=== PATIENT | male | born 1970 | race Caucasian/White ===

== ENCOUNTER 2017-02-06 07:46 | Inpatient (IN) | payer MEDICAID ==
[~2017-02-06] VITALS: Ht 165.1 cm; Wt 67.8 kg
[2017-02-06] VITALS (12 sets, daily range): BP systolic 108–148; BP diastolic 59–86; PULSE 85–101; RESP 16–26; Ht 165.1 cm; Wt 67.8 kg
[~2017-02-06 07:46] MED LIST: ASPI-664 PO; ATOR20TA38 PO; BUPIVACAINE 0.25%/EPI (SDV) 30 ML INJ INJ ONE; CLOP75TA27 PO; GLIP-95 PO; LANT3I SC; LISI-313 PO; METF500T PO; METO-448 PO
[2017-02-06] MEDS ORDERED: morphine 4 MG/ML VIAL IV STA (08:17)
[2017-02-06] MEDS ORDERED: ONDANSETRON 4 MG INJ IV STA (08:17)
[2017-02-06 08:47] LABS: ADD SCAN DIFF NO
[2017-02-06 08:49] LABS: BASOPHILS % 0.2 % (0.0-2.0); EOSINOPHILS # 0.1 10^3/ul (0.0-0.5); EOSINOPHILS % 0.7 % (0.0-7.0); HEMATOCRIT 43.2 % (42.0-52.0); LYMPHOCYTES # 1.3 10^3/ul (0.8-2.9); LYMPHOCYTES % 10.7 % (15.0-51.0); MEAN CORPUSCULAR HEMOGLOBIN 30.7 pg (29.0-33.0); MEAN CORPUSCULAR HGB CONC 34.7 g/dl (32.0-37.0); MEAN CORPUSCULAR VOLUME 88.5 fl (82.0-101.0); MEAN PLATELET VOLUME 9.6 fl (7.4-10.4); MONOCYTE # 0.7 10^3/ul (0.3-0.9); MONOCYTES % 5.5 % (0.0-11.0); NEUTROPHIL # 9.7 10^3/ul (1.6-7.5); NEUTROPHILS % 82.4 % (39.0-77.0); PLATELET COUNT 222 10^3/UL (140-415); RED BLOOD COUNT 4.88 10^6/ul (4.70-6.10); RED CELL DISTRIBUTION WIDTH 13.2 % (11.5-14.5); WHITE BLOOD COUNT 11.7 10^3/ul (4.8-10.8)
--- NOTE | 2017-02-06 09:11 | RADRPT ---
PROCEDURE: Scrotal ultrasound CLINICAL INDICATION: Right scrotal pain. TECHNIQUE: Scrotal ultrasound was performed in multiple obliquities. Lujan scale and color imaging was performed. Images were reviewed on high resolution PACS monitors. COMPARISON: None available FINDINGS: The testes are normal in size and echogenicity. There is normal flow to the bilateral testes. No t esticular mass or cyst is identified. No hydroceles are seen. The epididymides are normal. The re is no evidence for a varicocele. IMPRESSION: 1. Unremarkable scrotal ultrasound. RPTAT: HJBF .Ariel Gonzales MD, MD Date Time Electronically viewed and signed by .Ariel Gonzales MD, on 02/06/2017 09:11 .B/
[2017-02-06 09:15] LABS: ADD UMIC YES; URINE BILIRUBIN (Dip) NEGATIVE (NEGATIVE); URINE BLOOD (Dip) TRACE (NEGATIVE); URINE COLOR LT. YELLOW (YELLOW); URINE KETONES (Dip) 40 (NEGATIVE); URINE LEUKOCYTE ESTERASE (Dip) NEGATIVE (NEGATIVE); URINE NITRITE (Dip) NEGATIVE (NEGATIVE); URINE TOTAL PROTEIN (Dip) 1+ (NEGATIVE); URINE UROBILINOGEN (Dip) 1.0 E.U./dL (0.1-1.0)
[2017-02-06 09:19] LABS: ALBUMIN/GLOBULIN RATIO 1.17
[2017-02-06 09:31] LABS: CALCIUM 9.4 mg/dl (8.4-10.2); CREATININE 0.44 mg/dl (0.61-1.24); POTASSIUM 4.1 mmol/L (3.5-5.1)
[2017-02-06 09:32] LABS: ALBUMIN 4.6 g/dl (3.3-4.9); BILIRUBIN,INDIRECT 0.6 mg/dl (0-1.1); BILIRUBIN,TOTAL 0.6 mg/dl (0.2-1.3); TOTAL PROTEIN 8.5 g/dl (6.1-8.1)
[2017-02-06 09:35] LABS: BACTERIA,URINE FEW; MUCUS,URINE MANY
--- NOTE | 2017-02-06 09:55 | RADRPT ---
PROCEDURE: CT Abdomen and Pelvis without contrast. CLINICAL INDICATION: Abdominal pain. TECHNIQUE: Routine axial tomographic images of the abdomen and pelvis were obtained from the domes of the diaphragm to the symphysis pubis. The patient was scanned withoutoral or intravenous contra st. Coronal and sagittal reformatted images were obtained from the axial source images. Images were reviewed on a high-resolution PACS workstation. One or more of the following dose reduction techniques were used: Automated exposure control, Adjust ment of the mA and/or kV according to patient size, and/or Use of iterative reconstruction technique . The total exam CTDI equals 12.01 mGy and the total exam DLP equals 677.60 mGy-cm. COMPARISON: None. FINDINGS: The visualized portions of the lung bases demonstrate mild bilateral basilar atelectasis. Evaluat ion of the intra-abdominal solid organs is somewhat limited on this noncontrast examination. The li jennifer appears normal in size. There is no intra or extrahepatic biliary dilatation. There is a 4 mm c alcification along the posterior right hepatic lobe. The gallbladder is unremarkable by CT criteria . The spleen, pancreas, and adrenal glands are unremarkable. The kidneys are symmetric in size. No renal, ureteral, or bladder calculi are identified. No perine phric inflammatory changes are identified. The urinary bladder is grossly unremarkable. The bowel demonstrates normal course and caliber. There is no evidence of bowel obstruction. The a ppendix fluid-filled and distended measuring 10 mm in diameter. There is an appendicolith at the ba se of the appendix. No intraperitoneal free fluid, free air or abscess is identified. The pelvic o rgans are grossly unremarkable. No retroperitoneal, mesenteric, or inguinal lymphadenopathy is iden tified. The aorta is normal in caliber and contains vascular calcifications. The osseous structures demonstrate degenerative changes of the spine. No significant subcutaneous soft tissue abnormalities are seen. IMPRESSION: 1. Acute appendicitis. No intraperitoneal free fluid or abscess is seen. 2. Arterial atherosclerosis. RPTAT: HH .Diana White MD, MD Date Time Electronically viewed and signed by .Diana White MD, MD on 02/06/2017 09:55 .G/
[2017-02-06] MEDS ORDERED: HYDROmorphONE 1 MG/ML SYG IV STA (10:18)
[2017-02-06] MEDS ORDERED: PIPER-TAZO 3.375 GM IV (PMX) 100 ML IVPB ONE (10:30)
[2017-02-06] MEDS ORDERED: SOD CHLORIDE 0.9% 1,000 ML IV ONE (10:30)
--- NOTE | 2017-02-06 10:39 | ERD ---
ER Documentation Chief Complaint Date/Time DATE: 02/06/17 TIME: 10:33 Chief Complaint RLQ ABD PAIN WITH NAUSEA SINCE YESTERDAY HPI This 46-year-old male who presents the emergency department today complaining of right testicular pain that goes up towards the right side of his stomach. States he is taking Flomax for pain. States he has had some nausea but no vomiting. Denies any fevers or chills. Denies any purulent drainage from penis ROS All systems reviewed and are negative except as per history of present illness. Medications Home Meds Active Scripts Aspirin* (Aspirin* EC) 81 Mg Tabec, 81 MG PO DAILY for 30 Days Prov:REGINALDO VALDES S. 06/22/14 Clopidogrel Bisulfate (Clopidogrel) 75 Mg Tab, 75 MG PO DAILY for 30 Days Prov:REGINALDO VALDES S. 06/22/14 Atorvastatin Calcium* (Atorvastatin Calcium*) 20 Mg Tab, 40 MG PO DAILY for 30 Days Prov:REGINALDO VALDES S. 06/22/14 Metoprolol Tartrate* (Lopressor*) 25 Mg Tab, 25 MG PO BID for 30 Days, TAB Prov:REGINALDO VALDES S. 06/22/14 Insulin Glargine* (Lantus*) 100 Unit/Ml Soln, 10 UNIT SC HS for 30 Days Prov:REGINALDO VALDES S. 06/22/14 Reported Medications Metformin Hcl (Glucophage) 500 Mg Tablet, 1000 MG PO BID, TAB 06/22/14 Lisinopril* (Lisinopril*) 5 Mg Tablet, 5 MG PO DAILY, TAB 06/22/14 Glipizide* (Glipizide*) 10 Mg Tablet, 10 MG PO BID, TAB 06/22/14 Allergies Allergies: Coded Allergies: No Known Allergy (Unverified , 06/21/14) PMhx/Soc History of Surgery: No Anesthesia Reaction: No Hx Neurological Disorder: Yes (stroke) Hx Respiratory Disorders: Yes (ASHTMA) Hx Cardiac Disorders: Yes Hx Psychiatric Problems: No Hx Miscellaneous Medical Probl: Yes (dm) Hx Alcohol Use: No Hx Substance Use: No Hx Tobacco Use: No Physical Exam Vitals Vital Signs Date Time Temp Pulse Resp B/P Pulse Ox O2 Delivery O2 Flow Rate FiO2 02/06/17 07:49 98.1 86 18 134/83 98 Physical Exam Const: No acute Head: Atraumatic Eyes: Normal Conjunctiva ENT: Normal External Ears, Nose and Mouth. Neck: Full range of motion..~ No meningismus. Resp: Clear to auscultation bilaterally Cardio: Regular rate and rhythm, no murmurs Abd: Soft, right lower quadrant tenderness. Tenderness at McBurney's., non distended. Normal bowel sounds : Testicles descended bilaterally. Nontender right testicle. No purulent drainage. No erythema or warmth Skin: No petechiae or rashes Back: No midline or flank tenderness Ext: No cyanosis, or edema Neur: Awake and alert Psych: Normal Mood and Affect Result Diagram: 02/06/17 0820 02/06/1720 Results 24 hrs Laboratory Tests Test 02/06/17 08:20 02/06/17 08:52 White Blood Count 11.710^3/ul Red Blood Count 4.8810^6/ul Hemoglobin 15.0g/dl Hematocrit 43.2% Mean Corpuscular Volume 88.5fl Mean Corpuscular Hemoglobin 30.7pg Mean Corpuscular Hemoglobin Concent 34.7g/dl Red Cell Distribution Width 13.2% Platelet Count 06406^3/UL Mean Platelet Volume 9.6fl Neutrophils % 82.4% Lymphocytes % 10.7% Monocytes % 5.5% Eosinophils % 0.7% Basophils % 0.2% Nucleated Red Blood Cells % 0.0/100WBC Neutrophils # 9.710^3/ul Lymphocytes # 1.310^3/ul Monocytes # 0.710^3/ul Eosinophils # 0.110^3/ul Basophils # 0.010^3/ul Nucleated Red Blood Cells # 0.010^3/ul Sodium Level 136mmol/L Potassium Level 4.1mmol/L Chloride Level 102mmol/L Carbon Dioxide Level 23mmol/L Anion Gap 15 Blood Urea Nitrogen 18mg/dl Creatinine 0.44mg/dl Glucose Level 260mg/dl Calcium Level 9.4mg/dl Total Bilirubin 0.6mg/dl Direct Bilirubin 0.00mg/dl Indirect Bilirubin 0.6mg/dl Aspartate Amino Transf (AST/SGOT) 22IU/L Alanine Aminotransferase (ALT/SGPT) 37IU/L Alkaline Phosphatase 122IU/L Total Protein 8.5g/dl Albumin 4.6g/dl Globulin 3.90g/dl Albumin/Globulin Ratio 1.17 Lipase 46U/L Urine Color LT. YELLOW Urine Clarity CLEAR Urine pH 6.0 Urine Specific Horner 1.020 Urine Ketones 40 Urine Nitrite NEGATIVE Urine Bilirubin NEGATIVE Urine Urobilinogen 1.0 E.U./dL Urine Leukocyte Esterase NEGATIVE Urine Microscopic RBC 2-5/HPF Urine Microscopic WBC 2-5/HPF Urine Epithelial Cells FEW Urine Bacteria FEW Urine Mucus MANY Urine Hemoglobin TRACE Urine Glucose 0.5%% Urine Total Protein 1+ Current Medications Medications (Trade) Dose Ordered Sig/Kofi Route PRN Reason Start Time Stop Time Status Last Admin Dose Admin Morphine Sulfate (morphine) 4 mg ONCE STAT IV 02/06/17 08:17 02/06/17 08:19 DC 02/06/17 08:32 Ondansetron HCl (Zofran Inj) 4 mg ONCE STAT IV 02/06/17 08:17 02/06/17 08:19 DC 02/06/17 08:32 Hydromorphone HCl 1 mg 1 mg ONCE STAT IV 02/06/17 10:18 02/06/17 10:20 DC Sodium Chloride 1,000 ml @ 1,000 mls/hr Q1H ONCE IV 02/06/17 10:30 02/06/17 11:29 Piperacillin Sod/ Tazobactam Sod (Zosyn 3.375gm/ 100 ml (Pmx)) 100 ml @ 200 mls/hr ONCE ONCE IVPB 02/06/17 10:30 02/06/17 10:59 DIAGNOSTIC IMAGING REPORT Patient: KYM LYON : 1970 Age: 46 Sex: M [id number] DOS: 02/06/17 0817 Ordering MD: TOM ALONSO PA-C Location: [facility], [facility] Room/Bed: PROCEDURE: Scrotal ultrasound CLINICAL INDICATION: Right scrotal pain. TECHNIQUE: Scrotal ultrasound was performed in multiple obliquities. Lujan scale and color imaging was performed. Images were reviewed on high resolution PACS monitors. COMPARISON: None available FINDINGS: The testes are normal in size and echogenicity. There is normal flow to the bilateral testes. No testicular mass or cyst is identified. No hydroceles are seen. The epididymides are normal. There is no evidence for a varicocele. IMPRESSION: 1. Unremarkable scrotal ultrasound. RPTAT: HJBF .Ariel Gonzales MD, MD Date Time Electronically viewed and signed by .Ariel Gonzales MD, MD on 2016 09:11 .B/ CC: TOM ALONSO PA-C DIAGNOSTIC IMAGING REPORT Patient: KYM LYON : 1970 Age: 46 Sex: M MR #: [id number] DOS: 02/06/17 0858 Ordering MD: TOM ALONSO PA-C Location: [facility] Room/Bed: PROCEDURE: CT Abdomen and Pelvis without contrast. CLINICAL INDICATION: Abdominal pain. TECHNIQUE: Routine axial tomographic images of the abdomen and pelvis were obtained from the domes of the diaphragm to the symphysis pubis. The patient was scanned withoutoral or intravenous contrast. Coronal and sagittal reformatted images were obtained from the axial source images. Images were reviewed on a high-resolution PACS workstation. One or more of the following dose reduction techniques were used: Automated exposure control, Adjustment of the mA and/or kV according to patient size, and/ or Use of iterative reconstruction technique. The total exam CTDI equals 12.01 mGy and the total exam DLP equals 677.60 mGy-cm. COMPARISON: None. FINDINGS: The visualized portions of the lung bases demonstrate mild bilateral basilar atelectasis. Evaluation of the intra-abdominal solid organs is somewhat limited on this noncontrast examination. The liver appears normal in size. There is no intra or extrahepatic biliary dilatation. There is a 4 mm calcification along the posterior right hepatic lobe. The gallbladder is unremarkable by CT criteria. The spleen, pancreas, and adrenal glands are unremarkable. The kidneys are symmetric in size. No renal, ureteral, or bladder calculi are identified. No perinephric inflammatory changes are identified. The urinary bladder is grossly unremarkable. The bowel demonstrates normal course and caliber. There is no evidence of bowel obstruction. The appendix fluid-filled and distended measuring 10 mm in diameter. There is an appendicolith at the base of the appendix. No intraperitoneal free fluid, free air or abscess is identified. The pelvic organs are grossly unremarkable. No retroperitoneal, mesenteric, or inguinal lymphadenopathy is identified. The aorta is normal in caliber and contains vascular calcifications. The osseous structures demonstrate degenerative changes of the spine. No significant subcutaneous soft tissue abnormalities are seen. IMPRESSION: 1. Acute appendicitis. No intraperitoneal free fluid or abscess is seen. 2. Arterial atherosclerosis. RPTAT: HH .Diana White MD, MD Date Time Electronically viewed and signed by .Diana White MD, MD on 02/06/2017 09 :55 .G/ CC: TOM ALONSO PA-C Procedures/[facility] This a 46-year-old male who presents to the emergency department today complaining of right testicular pain that goes up to his stomach. On physical exam patient did not have any testicular pain however he had significant amount of tenderness in his right lower quadrant and specifically at McBurney's. I did obtain laboratory work as well as an ultrasound and CT abdomen pelvis. Laboratory work shows an elevated white blood cell count of 11.7. He is not anemic. Platelets are within normal limits. Electrolytes are within normal limits. Glucose is elevated at 260. Liver functions within normal limits. Lipase within normal limits. UA is negative for infection or hematuria. Patient has glucose in his urine Testicular ultrasound is unremarkable. There is no evidence of testicular torsion, epididymitis, orchitis. No evidence of varicocele or hydrocele there are no masses or cysts identified. There is normal flow to bilateral testes CT abdomen pelvis noncontrast shows acute appendicitis. The appendix is fluid- filled and distended measuring 10 mm in diameter. There is an appendicolith at the base of the appendix. There is no free fluid, free air or abscess. There is arterial atherosclerosis. Gallbladder is unremarkable. There are no renal or ureteral or bladder calculi identified. Patient symptoms at this time most consistent with acute appendicitis. I was not called in regards to the CT scan by the radiologist. I did notify Dr. Salazar immediately upon viewing the results of the CT scan. Patient had been given morphine and Zofran here in the emergency department. He continued to complain of pain and was therefore given Dilaudid, IV fluids and Zosyn. Patient will be admitted to the hospital for likely appendectomy. I explained the results to the patient. Any further orders placed will be placed by the admitting physician, surgeon or TOM White PA-C February 06, 2017 10:39
[2017-02-06] MEDS ORDERED: SOD CHLORIDE 0.9% 1,000 ML IV SCH (11:12)
[2017-02-06] MEDS: PIPER-TAZO 3.375 GM IV (PMX) 100 ML IVPB SCH ×2 (11:27→17:24)
[2017-02-06] MEDS ORDERED: GLUCOSE GEL 15 GRAM TUBE BUCCAL PRN (11:30)
[2017-02-06] MEDS ORDERED: HYDROCODONE/APAP (5/325) TAB PO PRN ×2 (11:30)
[2017-02-06] MEDS ORDERED: ONDANSETRON 4 MG INJ IV PRN ×2 (11:30→22:00)
[2017-02-06] MEDS ORDERED: BISACODYL 10 MG SUPP PR PRN (11:30)
[2017-02-06] MEDS ORDERED: morphine 2 MG INJ IV PRN (11:30)
[2017-02-06] MEDS ORDERED: DEXTROSE 50% 50 ML SYRINGE IV PRN ×2 (11:30)
[2017-02-06] MEDS ORDERED: MAGNESIUM HYDROXIDE 30ML CUP PO PRN (11:30)
[2017-02-06] MEDS ORDERED: GLUCOSE GEL 15 GRAM TUBE PO PRN ×2 (11:30)
[2017-02-06] MEDS ORDERED: GLUCAGON 1 MG INJ IM PRN (11:30)
[2017-02-06] MEDS ORDERED: ACETAMINOPHEN 325 MG TAB PO PRN (11:30)
[2017-02-06] MEDS ORDERED: ACETAMINOPHEN 650 MG SUPP PR PRN (11:30)
[2017-02-06] MEDS ORDERED: NACL 0.9% 3 ML SYG IV SCH (11:30)
[2017-02-06] MEDS ORDERED: DOCUSATE SODIUM 100 MG CAP PO PRN (11:30)
[2017-02-06] MEDS: INSULIN ASPART [NOVOLOG] 3 ML PEN SC SCH ×6 (12:00→23:17)
[2017-02-06] MEDS ORDERED: HYDROmorphONE 1 MG/ML SYG IV PRN (15:30)
--- NOTE | 2017-02-06 15:35 | HP ---
Date/Time of Note Date/Time of Note DATE: 02/06/17 TIME: 15:30 Assessment/Plan VTE Prophylaxis VTE Prophylaxis Intervention: SCD's Assessment/Plan Chief Complaint/Hosp Course Impression and plan 1. Acute appendicitis. Continue antibiotic for now. Keep n.p.o. IV fluids. Analgesics as needed. Surgeon consulted. Tentative plan for surgical intervention. Will follow. 2. History of CAD status post PCI in 2013 with known history of myocardial infarction. Continue antiplatelet therapy and statin medication 3. History dyslipidemia. Follow-up on fasting lipid panel. Continue on statin medication. 4. Essential hypertension. Continue antihypertensives and adjust as needed 5. Diabetes. Patient with noted A1c of 10.3. This report compliance with home oral anti-glycemic's but does state his blood glucose at home is typically always high. Will start patient on insulin regimen and adjust as needed. Will get nutrition educator to follow. DVT prophylaxis: Is SCDs Admission process time is 40 minutes Discussed plan of care with Dr. Reyes Problems: HPI/ROS Admit Date/Time Admit Date/Time February 06, 2017 at 10:40 Hx of Present Illness Is a 46-year-old male with past medical history of CAD with myocardial infarction in 2013 status post cardiac stent, hypertension, dysrhythmia, diabetes, who came to [facility] due to reports of abdominal pain. Patient did report he had abdominal pain for 1 day duration starting yesterday afternoon while he was walking. He did report that his pain initially started in the right testicle and migrated up to his right upper abdominal quadrant and into his left upper abdominal quadrant. He did report having some diffuse. He did have some nausea but no reported vomiting. His pain continued to worsen and was unable to tolerate oral intake and as such was brought to [facility] for further evaluation. Upon examination he did have testicular ultrasound done that was noted to be unremarkable. Additionally had a CT scan of his abdomen and pelvis that did have findings consistent with acute appendicitis. Patient also had some leukocytosis with white count of 11.7. No fever seen. Patient does still does report having abdominal pain 10 out of 10. Denies any other chest pain or shortness of breath. We will evaluate him for the aformentiond issues ROS 12 point review of systems obtained and entirely negative except that mentioned in history of present illness PMH/Family/Social Past Medical History Medical/surgical history 1. CAD status post PCI with history of myocardial infarction in 2014 1. Hypertension 3. Dyslipidemia 4. Diabetes Family History Significant Family History: no pertinent family hx Social History Alcohol Use: other (Reports drinking alcohol once a week) Smoking Status: Current every day smoker (Currently smokes 5 cigarettes a day) Drug Use: none Exam/Review of Systems Vital Signs Vitals Vital Signs Date Time Temp Pulse Resp B/P Pulse Ox O2 Delivery O2 Flow Rate FiO2 02/06/17 12:52 99.3 85 19 124/69 98 Room Air Exam Constitutional: alert, oriented Psych: nl mood/affect Eyes: nl conjunctiva Neck: supple, No jvd Respiratory: clear to auscultation Cardiovascular: regular rate and rhythm Gastrointestinal: soft, tender (Tender upon palpation on all abdominal quadrants) Musculoskeletal: nl extremities to inspection Neurological: ADMINISTRATOR PESTICIDE II-XII intact, nl mental status, nl speech Skin: nl turgor Labs Result Diagram: 02/06/17 0820 02/06/17 0820 Medications Medications Current Medications Aspirin (Halfprin) 81 mg DAILY PO ; Start 02/07/17 at 09:00 Atorvastatin Calcium (Lipitor) 40 mg DAILY PO ; Start 02/07/17 at 09:00 Clopidogrel Bisulfate (plaVIX) 75 mg DAILY PO ; Start 02/07/17 at 09:00 Insulin Glargine (Lantus) 10 unit HS SC ; Start 02/06/17 at 21:00 Metoprolol Tartrate 25 mg 25 mg BID PO ; Start 02/06/17 at 21:00 Sodium Chloride (NS) 1,000 ml @ 100 mls/hr Q10H IV ; Start 02/06/17 at 11:12 Ondansetron HCl (Zofran Inj) 4 mg Q6H PRN IV NAUSEA AND/OR VOMITING Last administered on 02/06/17t 12:51; Admin Dose 4 MG; Start 02/06/17 at 11:30 Acetaminophen (Tylenol Tab) 650 mg Q6H PRN PO PAIN LEVEL 1-3 OR FEVER; Start at 11:30 Acetaminophen (Tylenol Supp) 650 mg Q6H PRN IA PAIN LEVEL 1-3 OR FEVER; Start 02/06/17 at 11:30 Acetaminophen/ Hydrocodone Bitart (Hudson (5/325)) 1 tab Q6H PRN PO MODERATE PAIN LEVEL 4-6; Start 02/06/17 at 11:30 Acetaminophen/ Hydrocodone Bitart (Hudson (5/325)) 2 tab Q6H PRN PO SEVERE PAIN LEVEL 7-10; Start 02/06/17 at 11:30 Morphine Sulfate (morphine) 2 mg Q4H PRN IV SEVERE PAIN LEVEL 7-10 Last administered on 02/06/17t 12:51; Admin Dose 2 MG; Start 02/06/17 at 11:30 Docusate Sodium (Colace) 100 mg Q12H PRN PO CONSTIPATION; Start 02/06/17 at 11: 30 Magnesium Hydroxide (Milk Of Mag) 30 ml DAILY PRN PO CONSTIPATION; Start at 11:30 Bisacodyl (Dulcolax Supp) 10 mg DAILY PRN IA CONSTIPATION; Start 02/06/17 at 11: 30 Famotidine 20 mg 20 mg Q12 IV ; Start 02/06/17 at 21:00 Piperacillin Sod/ Tazobactam Sod (Zosyn 3.375gm/ 100 ml (Pmx)) 100 ml @ 200 mls /hr Q6 IVPB ; Start 02/06/17 at 12:00 Miscellaneous Information 1 ea NOTE XX ; Start 02/06/17 at 11:30 Glucose (Glutose) 15 gm Q15M PRN PO DECREASED GLUCOSE; Start 02/06/17 at 11:30 Glucose (Glutose) 22.5 gm Q15M PRN PO DECREASED GLUCOSE; Start 02/06/17 at 11:30 Dextrose (D50w Syringe) 25 ml Q15M PRN IV DECREASED GLUCOSE; Start 02/06/17 at 11:30 Dextrose (D50w Syringe) 50 ml Q15M PRN IV DECREASED GLUCOSE; Start 02/06/17 at 11:30 Glucagon (Glucagen) 1 mg Q15M PRN IM DECREASED GLUCOSE; Start 02/06/17 at 11:30 Glucose (Glutose) 15 gm Q15M PRN BUCCAL DECREASED GLUCOSE; Start 02/06/17 at 11: 30 Hydromorphone HCl (Dilaudid) 1 mg Q4H PRN IV PAIN; Start 02/06/17 at 15:30; Status OSCAR DAVE February 06, 2017 15:35
[2017-02-06] MEDS ORDERED: DEXTROSE 5%-0.45% NACL 1,000 ML IV SCH (16:00)
[2017-02-06] MEDS ORDERED: D5-0.2 NACL + KCL 20 MEQ 1,000 ML IV SCH (16:30)
[2017-02-06] MEDS: D5W-0.45 NACL + KCL 20 MEQ 1,000 ML IV SCH (16:53)
[2017-02-06] MEDS ORDERED: HYDROmorphONE 2 MG/ML SYG IV PRN (18:30)
[2017-02-06] MEDS: HYDROmorphONE 1 MG/ML SYG IV PRN (19:03)
[2017-02-06] MEDS ORDERED: BUPIVACAINE 0.25%/EPI (SDV) 30 ML INJ ONE (20:09)
[2017-02-06] MEDS ORDERED: GLYCOPYRROLATE 0.4 MG INJ ONE ×2 (20:37→21:11)
[2017-02-06] MEDS ORDERED: LIDOCAINE 2% (SDV) 5 ML INJ ONE (20:37)
[2017-02-06] MEDS ORDERED: PROPOFOL 20 ML ONE (20:37)
[2017-02-06] MEDS ORDERED: SUCCINYLCHOLINE CHLORIDE 100 MG/5 ML SYG IV ONE (20:37)
[2017-02-06] MEDS ORDERED: ROCURONIUM 50 MG INJ ONE (20:38)
[2017-02-06] MEDS ORDERED: MEPERIDINE 100 MG INJ ONE (20:38)
[2017-02-06] MEDS: METOPROLOL 25 MG TAB PO SCH (21:00)
[2017-02-06] MEDS: INSULIN GLARGINE [LANtus] 3 ML PEN SC SCH ×2 (21:00→23:24)
[2017-02-06] MEDS: FAMOTIDINE 20 MG INJ IV SCH (21:00)
[2017-02-06] MEDS ORDERED: NEOSTIGMINE 3 MG/3 ML SYRINGE ONE (21:12)
[2017-02-06] MEDS ORDERED: METOCLOPRAMIDE 10 MG INJ IV PRN (22:00)
[2017-02-06] MEDS ORDERED: MIDAZOLAM 1 MG/ML 2 ML INJ IV PRN (22:00)
[2017-02-06] MEDS ORDERED: DIPHENHYDRAMINE 50 MG INJ IV PRN (22:00)
[2017-02-06] MEDS ORDERED: OXYCODONE/ACETAMINOPHEN (5/325) TAB PO PRN (22:00)
[2017-02-06] MEDS ORDERED: HYDROmorphONE (0.2 MG/ML) 10ML SYG IV PRN ×2 (22:00)
[2017-02-06] MEDS ORDERED: morphine (1 MG/ML) 10ML SYRINGE IV PRN ×2 (22:00)
[2017-02-06] MEDS ORDERED: hydrALAzine 20 MG INJ IV PRN (22:00)
[2017-02-06] MEDS ORDERED: LABETALOL HCL 20MG INJ IV PRN (22:00)
[2017-02-06] MEDS ORDERED: EPHEDrine SULFATE 50 MG/5 ML SYG IV PRN (22:00)
[2017-02-06] MEDS ORDERED: FENTAnyl 50 MCG/ML VIAL IV PRN ×2 (22:00)
[2017-02-06] MEDS ORDERED: MEPERIDINE 25 MG INJ IV PRN (22:00)
[2017-02-06] MEDS: metroNIDAZOLE 500 MG/NS (PMX) 100 ML IVPB SCH (23:13)
[2017-02-07] VITALS: BP 113/60; PULSE 88
[2017-02-07] MEDS: PIPER-TAZO 3.375 GM IV (PMX) 100 ML IVPB SCH ×4 (00:39→23:44)
--- NOTE | 2017-02-07 03:26 | CONS ---
DATE OF ADMISSION: 02/06/2017 DATE OF CONSULTATION: 02/06/2017 SURGICAL CONSULTATION REASON FOR CONSULTATION: Acute appendicitis. HISTORY OF PRESENT ILLNESS: The patient is a 46-year-old gentleman who presents with a 1 day histor y of right lower quadrant abdominal pain. The pain was associated with nausea. In the emergency ro om, he was noted to have an elevated white blood cell count and a CT compatible with acute appendici tis. The patient is admitted and surgical consultation is requested in that regard. PAST MEDICAL HISTORY: The patient had an NH 2 years ago. No other hospitalizations or illnesses. OUTPATIENT MEDICATIONS: Outlined in the chart. ALLERGIES: NONE. REVIEW OF SYSTEMS: HEAD, EARS, EYES, NOSE AND THROAT: Unremarkable. PULMONARY: No history of pneumonia or shortness of breath. CARDIAC: As in the HPI. ABDOMEN: As in the HPI. GENITOURINARY: Asymptomatic. PHYSICAL EXAMINATION: GENERAL: The patient is alert and oriented 46-year-old male who is awake and alert, in no acute dis tress. HEAD, EARS, EYES, NOSE, AND THROAT: Within normal limits. LUNGS: Clear. HEART: Regular rhythm. ABDOMEN: Exquisitely tender in the right lower quadrant with guarding and rebound. EXTREMITIES: Unremarkable. LABORATORY DATA: The patient's hematocrit is 43.2 with a white count of 11,700 and a left shift wit h 82.4 polys. BUN, glucose and electrolytes are unremarkable. IMAGING: CT of the abdomen and pelvis shows acute appendicitis with no intraperitoneal free fluid o r abscess. IMPRESSION: Acute appendicitis. PLAN: The patient will undergo laparoscopic appendectomy, possible open. The procedure, outcomes, indications, alternatives and risks have been detailed to the patient who has an excellent understan ding of the nature of his situation and agrees to the proposed plan of therapy as outlined. Dictated By: JOSÉ BALDERAS/VALERIE Conf#: [id number] DID#: [id number]
--- NOTE | 2017-02-07 04:42 | OPR ---
DATE OF OPERATION: 02/06/2017 PREOPERATIVE DIAGNOSIS: Acute appendicitis. OPERATION PERFORMED: Laparoscopic appendectomy. POSTOPERATIVE DIAGNOSIS: Acute appendicitis with localized peritonitis. SURGEON: José Pascual MD ANESTHESIA: General. ANESTHESIOLOGIST: Dr. Carolina OPERATIVE REPORT: After satisfactory general anesthesia was achieved, the abdomen was prepped and d raped in the usual fashion. The abdomen was insufflated with carbon dioxide through an umbilical Ve ress needle to 15 mmHg pressure. The Veress needle was removed and the umbilical incision extended to 5 mm, through which a 5 mm trocar was placed. A 5 mm, 0-degree lens was placed. Laparoscopy elyse wed an acutely inflamed intraperitoneal appendix with localized peritonitis. Under direct visualiza tion, a 5 mm suprapubic trocar was placed and a 12 mm left lower quadrant trocar. A window was made in the mesoappendix through which a vascular linear cutter was placed across the base of the cecum, closed, and fired, disconnecting the appendix from the cecum. A second firing of the vascular line ar cutter across the mesoappendix fully freed the appendix which was placed intact into an EndoCatch , removed via the 12 mm port site. Hemostasis of the staple lines was total. Irrigant returned drea ar. The fascial defect of the left lower quadrant was closed with 2-0 Vicryl sutures placed through a laparoscopic closure device. The abdomen was then desufflated, and the fascial sutures were tied down. The skin punctures were infiltrated with 30 mL of 0.25% Marcaine with epinephrine and closed with dc. Operative blood loss was less than 10 mL. Sponge and needle counts were reported as correct x2. The patient tolerated the procedure well and without incident or complication. Dictated By: JOSÉ BALDERAS/NTS Conf#: [id number] DID#: [id number]
[2017-02-07] MEDS: D5W-0.45 NACL + KCL 20 MEQ 1,000 ML IV SCH ×3 (05:00→17:30)
[2017-02-07] MEDS: HYDROmorphONE 1 MG/ML SYG IV PRN ×2 (05:19→10:02)
[2017-02-07] MEDS: metroNIDAZOLE 500 MG/NS (PMX) 100 ML IVPB SCH ×3 (05:28→22:35)
[2017-02-07 07:17] LABS: ALBUMIN 3.4 g/dl (3.3-4.9); ALBUMIN/GLOBULIN RATIO 1.25; BILIRUBIN,INDIRECT 0.6 mg/dl (0-1.1); BILIRUBIN,TOTAL 0.6 mg/dl (0.2-1.3); CALCIUM 8.7 mg/dl (8.4-10.2); CREATININE 0.47 mg/dl (0.61-1.24); PHOSPHORUS 3.2 mg/dl (2.5-4.9); T3 UPTAKE 39.6 % (23.5-40.5); TOTAL PROTEIN 6.1 g/dl (6.1-8.1)
[2017-02-07 07:22] LABS: MAGNESIUM 1.8 mg/dl (1.7-2.5)
[2017-02-07 07:30] LABS: THYROID STIMULATING HORMONE 0.897 MIU/L (0.465-4.680)
[2017-02-07 07:32] VITALS: BP 109/65; RESP 18
[2017-02-07] MEDS: INSULIN ASPART [NOVOLOG] 3 ML PEN SC SCH ×7 (08:26→21:06)
[2017-02-07] MEDS: ATORVASTATIN 40 MG TAB PO SCH (08:47)
[2017-02-07] MEDS: CLOPIDOGREL 75 MG TAB PO SCH (08:47)
[2017-02-07] MEDS: FAMOTIDINE 20 MG INJ IV SCH ×2 (08:48→20:40)
[2017-02-07] MEDS: METOPROLOL 25 MG TAB PO SCH ×2 (08:49→20:40)
[2017-02-07] MEDS: ASPIRIN (EC) 81 MG TAB PO SCH (08:49)
[2017-02-07 08:56] LABS: ADD SCAN DIFF NO
[2017-02-07 09:06] LABS: BASOPHILS % 0.2 % (0.0-2.0); EOSINOPHILS # 0.1 10^3/ul (0.0-0.5); EOSINOPHILS % 0.5 % (0.0-7.0); HEMATOCRIT 36.9 % (42.0-52.0); HEMOGLOBIN 12.4 g/dl (14.0-18.0); LYMPHOCYTES # 1.9 10^3/ul (0.8-2.9); LYMPHOCYTES % 16.7 % (15.0-51.0); MEAN CORPUSCULAR HEMOGLOBIN 30.8 pg (29.0-33.0); MEAN CORPUSCULAR HGB CONC 33.6 g/dl (32.0-37.0); MEAN CORPUSCULAR VOLUME 91.8 fl (82.0-101.0); MEAN PLATELET VOLUME 9.9 fl (7.4-10.4); MONOCYTE # 0.8 10^3/ul (0.3-0.9); MONOCYTES % 7.1 % (0.0-11.0); NEUTROPHIL # 8.6 10^3/ul (1.6-7.5); NEUTROPHILS % 75.1 % (39.0-77.0); PLATELET COUNT 199 10^3/UL (140-415); RED BLOOD COUNT 4.02 10^6/ul (4.70-6.10); RED CELL DISTRIBUTION WIDTH 13.4 % (11.5-14.5); WHITE BLOOD COUNT 11.5 10^3/ul (4.8-10.8)
--- NOTE | 2017-02-07 10:22 | PN ---
DATE: 02/07/2017 SURGERY PROGRESS NOTE Postoperative day #1: Patient is afebrile throughout. He is markedly symptomatically improved. His a bdominal examination is benign and his puncture sites are clean. IMPRESSION: Excellent recovery status post laparoscopic appendectomy. Patient is cleared for disc harge home today with p.o. pain medicine and antibiotics. We will see the patient in office followu p in 1 week. Dictated By: JOSÉ BALDERAS/VALERIE Conf#: [id number] DID#: [id number]
--- NOTE | 2017-02-07 14:04 | RADRPT ---
Echocardiogram Report Patient Name: KYM LYON Gender: Male Date: 1970 Study Date: 06-Feb-2017 Manager Endoscopy: [facility] Location: 6 Ref. Physician: OSCAR QUICK Quality: Adequate Procedures: Transthoracic echocardiogram with complete 2D, M-Mode, and doppler examination. Indications: CAD, Pre-op. 2D/M Mode Doppler Measurement Value Normal Ranges Measurement Value Normal Ranges LVIDd 2D 4.9 3.5 - 5.6 cm AV Peak Luis Manuel 1.1 m/sec LVIDs 2D 3.5 2.1 - 4.1 cm AV Peak PG 5.3 mmHg LVPWd 2D 1.0 0.6 - 1.1 cm LVOT Peak Luis Manuel 1.0 m/sec IVSd 2D 1.0 0.6 - 1.1 cm LVOT Peak PG 4.1 mmHg AoR Diam 2D 2.7 2.0 - 3.7 cm MV E Peak Luis Manuel 0.6 m/sec EDV 2D 110.9 cm3 MV A Peak Luis Manuel 0.6 m/sec ESV 2D 44.4 cm3 MV E/A 1.1 MV Decel Time 133 msec MV Decel Shannon 5 MV E/A 1.1 Findings Left Ventricle: Lower limits of normal systolic function. Normal left ventricular cavity size. Normal left ventricular wall thickness. Ejection fraction is visually estimated at 50 - 55 %. Abnormal Diastolic Function. Right Ventricle: Normal right ventricular size. Normal right ventricular systolic function. Left Atrium: The left atrium is normal in size. Right Atrium: The right atrium is normal in size. Mitral Valve: Normal appearance of the mitral valve. Normal appearance and function of the mitral valve with trace physiologic regurgitation. Aortic Valve: Normal appearance of the aortic valve. No significant aortic stenosis or insufficiency. Tricuspid Valve: Tricuspid valve not well visualized. There is trace tricuspid regurgitation. Pulmonic Valve: There is trace pulmonic regurgitation. Pericardium: Normal pericardium with no significant pericardial effusion. Aorta: Normal aortic root. IVC: Normal size and normal respiratory collapse consistent with normal right atrial pressure. Conclusions 1.Lower limits of normal systolic function. Normal left ventricular cavity size. Normal left ventricular wall thickness. Ejection fraction is visually estimated at 50 - 55 %. Abnormal Diastolic Function. 2.Normal appearance of the mitral valve. Normal appearance and function of the mitral valve with trace physiologic regurgitation. 3.Tricuspid valve not well visualized. There is trace tricuspid regurgitation. 4.Normal appearance of the aortic valve. No significant aortic stenosis or insufficiency. Electronically Signed By: Cristhian Daniel 07-Feb-2017 14:03:24 -0700 Patient Name: KYM LYON Study Date: 06-Feb-2017 [id number]
[2017-02-07] MEDS ORDERED: Oxycodone/Acetamin (5/325) PO (14:10)
[2017-02-07] MEDS ORDERED: LANT3I SC (14:10)
[2017-02-07] MEDS ORDERED: CEPH500C PO (14:10)
[2017-02-07] MEDS ORDERED: NOVO3I SC (14:10)
--- NOTE | 2017-02-07 14:11 | PDOCDIS ---
Discharge Instructions DIAGNOSIS Discharge Diagnosis: 1. Acute appendicitis 2. CAD 3. Hypertension 4. Diabetes CONDITION Patient Condition: Stable HOME CARE INSTRUCTIONS: Special Diet: Carbohydrate controlled FOLLOW UP/APPOINTMENTS Appointments 1. Follow up with Dr. Mikel Pascual in one week 2. Follow up with your primary care provider within a week for further management and care of your diabetes OSCAR QUICK February 07, 2017 14:11
[2017-02-07] MEDS ORDERED: DIPHENHYDRAMINE 50 MG INJ IV ONE (14:30)
[2017-02-07 19:28] VITALS: BP 120/68; RESP 20
[2017-02-07] MEDS: OXYCODONE/ACETAMINOPHEN (5/325) TAB PO PRN (20:40)
[2017-02-07] MEDS: INSULIN GLARGINE [LANtus] 3 ML PEN SC SCH (21:06)
[2017-02-08] MEDS: OXYCODONE/ACETAMINOPHEN (5/325) TAB PO PRN ×3 (01:41→11:56)
[2017-02-08] MEDS: metroNIDAZOLE 500 MG/NS (PMX) 100 ML IVPB SCH (05:22)
[2017-02-08] MEDS: PIPER-TAZO 3.375 GM IV (PMX) 100 ML IVPB SCH ×2 (06:00→07:00)
[2017-02-08] MEDS: D5W-0.45 NACL + KCL 20 MEQ 1,000 ML IV SCH (06:55)
[2017-02-08 07:59] LABS: ADD SCAN DIFF NO
[2017-02-08 08:01] VITALS: BP 107/58; RESP 18
[2017-02-08 08:04] LABS: BASOPHILS % 0.1 % (0.0-2.0); EOSINOPHILS # 0.2 10^3/ul (0.0-0.5); EOSINOPHILS % 2.4 % (0.0-7.0); HEMATOCRIT 35.3 % (42.0-52.0); HEMOGLOBIN 11.5 g/dl (14.0-18.0); LYMPHOCYTES # 1.9 10^3/ul (0.8-2.9); LYMPHOCYTES % 23.9 % (15.0-51.0); MEAN CORPUSCULAR HEMOGLOBIN 29.8 pg (29.0-33.0); MEAN CORPUSCULAR HGB CONC 32.6 g/dl (32.0-37.0); MEAN CORPUSCULAR VOLUME 91.5 fl (82.0-101.0); MEAN PLATELET VOLUME 9.5 fl (7.4-10.4); MONOCYTE # 0.6 10^3/ul (0.3-0.9); NEUTROPHIL # 5.1 10^3/ul (1.6-7.5); NEUTROPHILS % 65.2 % (39.0-77.0); PLATELET COUNT 164 10^3/UL (140-415); RED BLOOD COUNT 3.86 10^6/ul (4.70-6.10); RED CELL DISTRIBUTION WIDTH 13.3 % (11.5-14.5); WHITE BLOOD COUNT 7.8 10^3/ul (4.8-10.8)
[2017-02-08] MEDS: INSULIN ASPART [NOVOLOG] 3 ML PEN SC SCH ×4 (08:15→12:07)
[2017-02-08 08:33] LABS: CALCIUM 8.5 mg/dl (8.4-10.2); CREATININE 0.5 mg/dl (0.61-1.24); POTASSIUM 3.7 mmol/L (3.5-5.1)
[2017-02-08] MEDS: FAMOTIDINE 20 MG INJ IV SCH (08:58)
[2017-02-08] MEDS: METOPROLOL 25 MG TAB PO SCH (08:59)
[2017-02-08] MEDS: ATORVASTATIN 40 MG TAB PO SCH (08:59)
[2017-02-08] MEDS: ASPIRIN (EC) 81 MG TAB PO SCH (09:00)
[2017-02-08] MEDS: CLOPIDOGREL 75 MG TAB PO SCH (09:00)
--- NOTE | 2017-02-08 10:52 | PN ---
Date/Time of Note Date/Time of Note LATE ENTRY DATE: 02/07/17 Assessment/Plan VTE Prophylaxis VTE Prophylaxis Intervention: SCD's Lines/Catheters IV Catheter Type (from Nrsg): Peripheral IV Assessment/Plan Chief Complaint/Hosp Course Impression and plan 1. Acute appendicitis. Continue antibiotic for now. Keep n.p.o. IV fluids. Analgesics as needed. Surgeon consulted. s/p lap appy. Will follow. 2. History of CAD status post PCI in 2013 with known history of myocardial infarction. Continue antiplatelet therapy and statin medication 3. History dyslipidemia. Continue on statin medication. 4. Essential hypertension. Continue antihypertensives and adjust as needed 5. Diabetes. Patient with noted A1c of 10.3. This report compliance with home oral anti-glycemic's but does state his blood glucose at home is typically always high. continue on insulin regimen DVT prophylaxis: Is SCDs DISPO/PLAN: still with elevated glucose . cont on insulin. smoking cessation advised. d/c planning Discussed plan of care with Dr. Reyes Problems: Subjective 24 Hr Interval Summary Free Text/Dictation still noted with some abd pain Exam/Review of Systems Vital Signs Vitals Vital Signs Date Time Temp Pulse Resp B/P Pulse Ox O2 Delivery O2 Flow Rate FiO2 02/08/17 08:01 98.3 72 18 107/58 96 02/07/17 00:00 Nasal Cannula 02/06/17 22:30 2.0 Intake and Output 02/07/17 02/07/17 02/08/17 15:00 23:00 07:00 Intake Total 700 ml 400 ml 1340 ml Output Total 0 ml Balance 700 ml 400 ml 1340 ml Exam Constitutional: alert, oriented Psych: nl mood/affect Neck: supple, No jvd Respiratory: clear to auscultation Cardiovascular: regular rate and rhythm Gastrointestinal: non-tender, soft Musculoskeletal: nl extremities to inspection Neurological: LAYOUT TECHNICIAN II-XII intact, nl mental status, nl speech Skin: other (surgical site cdi ) Results Result Diagram: 02/08/1715 02/08/1715 Results 24 hrs Laboratory Tests Test 02/07/17 12:19 02/07/17 17:58 02/07/17 20:36 02/08/17 01:37 Bedside Glucose 238 H 144 191 155 Test 02/08/17 07:15 02/08/17 08:20 White Blood Count 7.8 # Red Blood Count 3.86 L Hemoglobin 11.5 L Hematocrit 35.3 L Mean Corpuscular Volume 91.5 Mean Corpuscular Hemoglobin 29.8 Mean Corpuscular Hemoglobin Concent 32.6 Red Cell Distribution Width 13.3 Platelet Count 164 Mean Platelet Volume 9.5 Neutrophils % 65.2 Lymphocytes % 23.9 Monocytes % 8.0 Eosinophils % 2.4 Basophils % 0.1 Nucleated Red Blood Cells % 0.0 Neutrophils # 5.1 Lymphocytes # 1.9 Monocytes # 0.6 Eosinophils # 0.2 Basophils # 0.0 Nucleated Red Blood Cells # 0.0 Sodium Level 133 L Potassium Level 3.7 Chloride Level 102 Carbon Dioxide Level 25 Anion Gap 10 Blood Urea Nitrogen 10 Creatinine 0.50 L Glucose Level 148 # Calcium Level 8.5 Bedside Glucose 136 Medications Medications Current Medications Aspirin (Halfprin) 81 mg DAILY PO ; Start 02/07/17 at 09:00 Atorvastatin Calcium (Lipitor) 40 mg DAILY PO Last administered on 02/08/17 08 :59; Admin Dose 40 MG; Start 02/07/17 at 09:00 Clopidogrel Bisulfate (plaVIX) 75 mg DAILY PO Last administered on 02/08/17 09 :00; Admin Dose 75 MG; Start 02/07/17 at 09:00 Insulin Glargine (Lantus) 10 unit HS SC Last administered on 02/07/17 21:06; Admin Dose 10 UNIT; Start 02/06/17 at 21:00 Metoprolol Tartrate (Lopressor) 25 mg BID PO Last administered on 02/07/17 20: 40; Admin Dose 25 MG; Start 02/06/17 at 21:00 Ondansetron HCl (Zofran Inj) 4 mg Q6H PRN IV NAUSEA AND/OR VOMITING Last administered on 02/06/17 12:51; Admin Dose 4 MG; Start 02/06/17 at 11:30 Acetaminophen (Tylenol Tab) 650 mg Q6H PRN PO PAIN LEVEL 1-3 OR FEVER; Start at 11:30 Acetaminophen (Tylenol Supp) 650 mg Q6H PRN IN PAIN LEVEL 1-3 OR FEVER; Start 02/06/17 at 11:30 Acetaminophen/ Hydrocodone Bitart ([place] (5/325)) 1 tab Q6H PRN PO MODERATE PAIN LEVEL 4-6 Last administered on 02/07/17 18:45; Admin Dose 1 TAB; Start 02/06 at 11:30 Acetaminophen/ Hydrocodone Bitart ([place] (5/325)) 2 tab Q6H PRN PO SEVERE PAIN LEVEL 7-10 Last administered on 02/07/17 12:34; Admin Dose 2 TAB; Start 02/06/17 at 11:30 Docusate Sodium (Colace) 100 mg Q12H PRN PO CONSTIPATION; Start 02/06/17 at 11: 30 Magnesium Hydroxide (Milk Of Mag) 30 ml DAILY PRN PO CONSTIPATION; Start at 11:30 Bisacodyl (Dulcolax Supp) 10 mg DAILY PRN IN CONSTIPATION; Start 02/06/17 at 11: 30 Famotidine (Pepcid Iv) 20 mg Q12 IV Last administered on 02/08/17 08:58; Admin Dose 20 MG; Start 02/06/17 at 21:00 Miscellaneous Information 1 ea NOTE XX ; Start 02/06/17 at 11:30 Glucose (Glutose) 15 gm Q15M PRN PO DECREASED GLUCOSE; Start 02/06/17 at 11:30 Glucose (Glutose) 22.5 gm Q15M PRN PO DECREASED GLUCOSE; Start 02/06/17 at 11:30 Dextrose (D50w Syringe) 25 ml Q15M PRN IV DECREASED GLUCOSE; Start 02/06/17 at 11:30 Dextrose (D50w Syringe) 50 ml Q15M PRN IV DECREASED GLUCOSE; Start 02/06/17 at 11:30 Glucagon (Glucagen) 1 mg Q15M PRN IM DECREASED GLUCOSE; Start 02/06/17 at 11:30 Glucose 15 gm 15 gm Q15M PRN BUCCAL DECREASED GLUCOSE; Start 02/06/17 at 11:30 Potassium Chloride/Dextrose/ Sod Cl (D5-1/2ns + KCl 20 Meq) 1,000 ml @ 80 mls/ hr [id number] IV Last administered on 02/08/17 06:55; Admin Dose 80 MLS/HR; Start 02/06/17 at 16:30 Hydromorphone HCl 1 mg 1 mg Q2 PRN IV PAIN Last administered on 02/07/17 10:02 ; Admin Dose 1 MG; Start 02/06/17 at 19:00 Metronidazole (Flagyl 500 Mg (Pmx)) 100 ml @ 100 mls/hr Q8 IVPB Last administered on 02/08/17 05:22; Admin Dose 100 MLS/HR; Start 02/06/17 at 22:00 Hydromorphone HCl (Dilaudid) 1.5 mg Q2H PRN IV PAIN Last administered on 20:41; Admin Dose 1.5 MG; Start 02/06/17 at 18:30 Oxycodone/ Acetaminophen (Percocet (5/ 325)) 1 tab Q4H PRN PO MILD PAIN (1-3); Start 02/06/17 at 22:00 Oxycodone/ Acetaminophen 2 tab 2 tab Q4H PRN PO MODERATE PAIN (4-6) Last administered on 02/08/17 05:23; Admin Dose 2 TAB; Start 02/06/17 at 22:00 Piperacillin Sod/ Tazobactam Sod (Zosyn 3.375gm/ 100 ml (Pmx)) 100 ml @ 200 mls /hr Q8 IVPB Last administered on 02/08/17 07:00; Admin Dose 200 MLS/HR; Start 02/07/17 at 00:00 OSCAR QUICK February 08, 2017 10:52
--- NOTE | 2017-02-08 12:01 | DS ---
Date/Time of Note Date/Time of Note DATE: 02/08/17 TIME: 11:57 Discharge Summary Admission/Discharge Info Admit Date/Time February 06, 2017 at 10:40 Discharge Date/Time Hx of Present Illness This is a 46-year-old male with past medical history of CAD with myocardial infarction in 2013 status post cardiac stent, hypertension, dysrhythmia, diabetes, who came to [facility] due to reports of abdominal pain. Patient did report he had abdominal pain for 1 day duration starting yesterday afternoon while he was walking. He did report that his pain initially started in the right testicle and migrated up to his right upper abdominal quadrant and into his left upper abdominal quadrant. He did report having some diffuse. He did have some nausea but no reported vomiting. His pain continued to worsen and was unable to tolerate oral intake and as such was brought to [facility] for further evaluation. Upon examination he did have testicular ultrasound done that was noted to be unremarkable. Additionally had a CT scan of his abdomen and pelvis that did have findings consistent with acute appendicitis. Patient also had some leukocytosis with white count of 11.7. No fever seen. Patient does still does report having abdominal pain 10 out of 10. Denies any other chest pain or shortness of breath. We will evaluate him for the aformentiond issues Hospital Course This is a 46-year-old male with past medical history of CAD with myocardial infarction in 2013 status post cardiac stent, hypertension, dysrhythmia, diabetes, who came to [facility] due to reports of abdominal pain. According to report patient had abdominal pain for 1 day duration starting 1 day prior to admission. He did report his pain started in his right testicle and migrated up to his right upper abdominal quadrant. He also had diffuse pain associated with it. Patient also reported having some nausea but no vomiting. Patient did go to [facility] and had a CT scan done of his abdomen and pelvis that did have findings consistent with acute appendicitis. Patient was placed on antibiotics and placed n.p.o. He did have arthroscopic appendectomy and he did have good response from this. He was otherwise optimized medically. He was resumed on antiplatelet therapy and statin medication for his history of CAD. He did have a history of smoking and cessation was advised. Patient also had diabetes uncontrolled with A1c of 10.3. He was started on insulin. We did get his blood glucose controlled prior to his DC. He was also resumed on antihypertensive medications for his hypertension and statin medication for distal edema. During his course of stay he did improve. The plan of care was discussed with the patient and patient did verbalizes understanding. On the day of discharge patient was in stable condition Discussed plan of care with Dr. Reyes Discharge process 40 minutes Home Meds Active Scripts [Oxycodone/Acetamin (5/325)] 1 TAB TAB No Conflict Check, 1 TAB PO Q4H Y for MILD PAIN (1-3), #30 Prov:OSCAR QUICK 02/07/17 Cephalexin* (Cephalexin*) 500 Mg Capsule, 500 MG PO Q8, #28 CAP Prov:OSCAR QUICK 02/07/17 Insulin Glargine* (Lantus*) 100 Unit/Ml Soln, 15 UNIT SC HS for 30 Days Prov:OSCAR QUICK 02/07/17 Insulin Aspart* (Novolog Insulin Pen*) 100 Unit/Ml Soln, 5 UNIT SC WITH MEALS for 30 Days Prov:OSCAR QUICK 02/07/17 Aspirin* (Aspirin* EC) 81 Mg Tabec, 81 MG PO DAILY for 30 Days Prov:REGINALDO VALDES S. 06/22/14 Clopidogrel Bisulfate (Clopidogrel) 75 Mg Tab, 75 MG PO DAILY for 30 Days Prov:REGINALDO VALDES S. 06/22/14 Atorvastatin Calcium* (Atorvastatin Calcium*) 20 Mg Tab, 40 MG PO DAILY for 30 Days Prov:REGINALDO VALDES S. 06/22/14 Metoprolol Tartrate* (Lopressor*) 25 Mg Tab, 25 MG PO BID for 30 Days, TAB Prov:REGINALDO VALDES S. 06/22/14 Reported Medications Metformin Hcl (Glucophage) 500 Mg Tablet, 1000 MG PO BID, TAB 06/22/14 Discontinued Reported Medications Glipizide* (Glipizide*) 10 Mg Tablet, 10 MG PO BID, TAB 06/22/14 Lisinopril* (Lisinopril*) 5 Mg Tablet, 5 MG PO DAILY, TAB 06/22/14 Discontinued Scripts Insulin Glargine* (Lantus*) 100 Unit/Ml Soln, 10 UNIT SC HS for 30 Days Prov:REGINALDO VALDESOren 06/22/14 Follow-up Plan CONDITION Patient Condition: Stable HOME CARE INSTRUCTIONS: Special Diet: Carbohydrate controlled FOLLOW UP/APPOINTMENTS Appointments 1. Follow up with Dr. Mikel Pascual in one week 2. Follow up with your primary care provider within a week for further management and care of your diabetes Pending Labs Laboratory Tests Test 02/07/17 12:19 02/07/17 17:58 02/07/17 20:36 02/08/17 01:37 Bedside Glucose 238mg/dL (70-220) 144mg/dL (70-220) 191mg/dL (70-220) 155mg/dL (70-220) Test 02/08/17 07:15 02/08/17 08:20 White Blood Count 7.810^3/ul (4.8-10.8) Red Blood Count 3.8610^6/ul (4.70-6.10) Hemoglobin 11.5g/dl (14.0-18.0) Hematocrit 35.3% (42.0-52.0) Mean Corpuscular Volume 91.5fl (82.0-101.0) Mean Corpuscular Hemoglobin 29.8pg (29.0-33.0) Mean Corpuscular Hemoglobin Concent 32.6g/dl (32.0-37.0) Red Cell Distribution Width 13.3% (11.5-14.5) Platelet Count 20504^3/UL (140-415) Mean Platelet Volume 9.5fl (7.4-10.4) Neutrophils % 65.2% (39.0-77.0) Lymphocytes % 23.9% (15.0-51.0) Monocytes % 8.0% (0.0-11.0) Eosinophils % 2.4% (0.0-7.0) Basophils % 0.1% (0.0-2.0) Nucleated Red Blood Cells % 0.0/100WBC (0.0-0.0) Neutrophils # 5.110^3/ul (1.6-7.5) Lymphocytes # 1.910^3/ul (0.8-2.9) Monocytes # 0.610^3/ul (0.3-0.9) Eosinophils # 0.210^3/ul (0.0-0.5) Basophils # 0.010^3/ul (0.0-0.1) Nucleated Red Blood Cells # 0.010^3/ul (0.0-0.0) Sodium Level 133mmol/L (135-144) Potassium Level 3.7mmol/L (3.5-5.1) Chloride Level 102mmol/L (97-110) Carbon Dioxide Level 25mmol/L (21-31) Anion Gap 10 (8-16) Blood Urea Nitrogen 10mg/dl (7-20) Creatinine 0.50mg/dl (0.61-1.24) Glucose Level 148mg/dl (70-220) Calcium Level 8.5mg/dl (8.4-10.2) Bedside Glucose 136mg/dL (70-220) OSCAR QUICK February 08, 2017 12:01
== END 2017-02-08 14:30 | disposition home or self-care (01) | DRG 340 ==
LOC: FTE 07:46 → MS2 10:40
PROVIDERS: ADMIT Internal Medicine; ATTEND Internal Medicine
PROC: 0DTJ4ZZ Resection of Appendix, Percutaneous Endoscopic Approach (ICD-10-PCS; principal; 2017-02-06 21:00)
DX: K35.3 Acute appendicitis with localized peritonitis (principal); I10 Essential (primary) hypertension; N50.811 Right testicular pain; E78.5 Hyperlipidemia, unspecified; E11.9 Type 2 diabetes mellitus without complications; I25.2 Old myocardial infarction
CPT/HCPCS: 36415; 74176; 76870; 80048; 80053; 80061; 81001; 81003; 82962; 83036; 83690; 83735; 84100; 84436; 84443; 84479; 85025; 88304; 93306; 96365; 96366; 96375; J0330; J1170; J1200; J1815; J2175; J2270; J2405; J2543; J2710; J3480; J7030; J7042